=== PATIENT | male | born 2000 | race Caucasian/White ===

== ENCOUNTER 2023-12-22 13:39 | Emergency (ER) | payer SELFPAY ==
[~2023-12-22] VITALS: Ht 182.8 cm; Wt 88.9 kg
[2023-12-22] MEDS ORDERED: SODIUM CHLORIDE 0.9% 1,000 ML IV ONE (13:55)
[2023-12-22 14:19] LABS: BASO % 0.5 % (0.0-1.0); EOS # 0.1 10*3/uL (0.0-0.4); EOS % 1.1 % (1.0-4.0); HEMATOCRIT 43.8 % (42.0-52.0); LYMPH # 1.1 10*3/uL (1.3-4.4); LYMPH % 18.1 % (27.0-41.0); MEAN CELL VOLUME 88.7 fl (80.0-94.0); MEAN CORPUSCULAR HGB 29.8 pg (27.0-31.0); MEAN CORPUSCULAR HGB CONC 33.6 g/dl (33.0-37.0); MEAN PLATELET VOLUME 9.9 fl (9.6-12.3); MONO # 0.4 10*3/uL (0.1-1.0); MONO % 5.9 % (3.0-9.0); NEUT # 4.6 10*3/uL (2.3-7.9); NEUT % 74.2 % (47.0-73.0); PLATELET COUNT AUTOMATED 243 10*3/uL (130-400); RED BLOOD COUNT 4.94 10*6/uL (4.50-5.90); RED CELL DISTRI WIDTH 12.4 % (0-14.5); WHITE BLOOD COUNT 6.1 10*3/uL (4.8-10.8)
[2023-12-22 14:38] LABS: ALKALINE PHOSPHATASE 102 U/L (46-116); BUN 14 mg/dl (9-23); CHLORIDE 104 mmol/L (98-107); LIPASE 30 U/L (12-53); SGPT/ALT 26 U/L (5-49); TOTAL PROTEIN 7.6 gm/dL (6.0-8.0)
[2023-12-22] MEDS ORDERED: IOHEXOL 300 MG/ML 100 ML VIAL IV ONE (14:45)
[2023-12-22 15:54] LABS: BILIRUBIN Negative (Negative); BLOOD Negative (Negative); CLARITY Clear (Clear); COLOR Yellow (Yellow); GLUCOSE Negative (Negative); KETONE Negative (Negative); LEUKO ESTERASE Negative (Negative); NITRITE Negative (Negative); SPECIFIC GRAVITY >= 1.030 (1.001-1.030)
[2023-12-22 16:42] LABS: RBC 0-2 rbc/hpf (0-2)
[2023-12-22] MEDS ORDERED: CIPRO500 MG PO (16:51)
[2023-12-22] MEDS ORDERED: METRONIDAZOLE500 M1 PO (16:51)
== END 2023-12-22 17:10 | disposition home or self-care (01) ==
LOC: ED 13:39
PROVIDERS: Physician Assistant Medical
DX: K52.9 Noninfective gastroenteritis and colitis, unspecified (principal); R11.2 Nausea with vomiting, unspecified; Z88.1 Allergy status to other antibiotic agents; Z88.8 Allergy status to other drugs, medicaments and biological substances

== ENCOUNTER 2024-02-02 21:02 | Emergency (ER) | payer SELFPAY ==
[~2024-02-02] VITALS: Ht 180.3 cm; Wt 81.6 kg
[~2024-02-02 21:02] MED LIST: CIPRO500 MG PO; METRONIDAZOLE500 M1 PO
[2024-02-02] MEDS ORDERED: CYCLOBENZAPRINE5 M3 PO (21:20)
[2024-02-02] MEDS ORDERED: methylPREDNISolone sod succ 125 MG VIAL IM ONE (21:25)
[2024-02-02] MEDS ORDERED: Ketorolac Tromethamine 30 MG/ML VIAL IM ONE (21:25)
== END 2024-02-02 21:35 | disposition home or self-care (01) ==
LOC: ED 21:02
DX: S39.012A Strain of muscle, fascia and tendon of lower back, initial encounter (principal); M25.551 Pain in right hip; Z88.1 Allergy status to other antibiotic agents; Z88.8 Allergy status to other drugs, medicaments and biological substances; W01.0XXA Fall on same level from slipping, tripping and stumbling without subsequent striking against object, initial encounter; Y93.01 Activity, walking, marching and hiking; Y92.096 Garden or yard of other non-institutional residence as the place of occurrence of the external cause; Y99.8 Other external cause status

== ENCOUNTER 2024-03-22 23:14 | Emergency (ER) | payer SELFPAY ==
[~2024-03-22] VITALS: Ht 180.3 cm; Wt 86.2 kg
[~2024-03-22 23:14] MED LIST changes: +CYCLOBENZAPRINE5 M3 PO
[2024-03-23 00:06] LABS: BASO # 0.1 10*3/uL (0.0-0.1); BASO % 0.6 % (0.0-1.0); EOS # 0.1 10*3/uL (0.0-0.4); EOS % 1.1 % (1.0-4.0); HEMATOCRIT 40.1 % (42.0-52.0); MEAN CELL VOLUME 88.7 fl (80.0-94.0); MEAN CORPUSCULAR HGB 29.9 pg (27.0-31.0); MEAN CORPUSCULAR HGB CONC 33.7 g/dl (33.0-37.0); MEAN PLATELET VOLUME 9.9 fl (9.6-12.3); MONO # 0.7 10*3/uL (0.1-1.0); MONO % 7.8 % (3.0-9.0); NEUT # 5.7 10*3/uL (2.3-7.9); NEUT % 66.7 % (47.0-73.0); PLATELET COUNT AUTOMATED 220 10*3/uL (130-400); RED BLOOD COUNT 4.52 10*6/uL (4.50-5.90); RED CELL DISTRI WIDTH 12.3 % (0-14.5); WHITE BLOOD COUNT 8.6 10*3/uL (4.8-10.8)
[2024-03-23 00:13] LABS: BILIRUBIN Negative (Negative); BLOOD Negative (Negative); CLARITY Clear (Clear); COLOR Yellow (Yellow); GLUCOSE Negative (Negative); KETONE Negative (Negative); LEUKO ESTERASE Negative (Negative); NITRITE Negative (Negative); PH 6.5 (4.5-8.0); SPECIFIC GRAVITY 1.015 (1.001-1.030); UROBILINOGEN 0.2 E.U./dl (0.0-1.0)
[2024-03-23 00:24] LABS: RBC 0-2 rbc/hpf (0-2); WBC 0-2 wbc/hpf (0-5)
[2024-03-23 00:24] LABS: BUN 14 mg/dl (9-23); CHLORIDE 105 mmol/L (98-107); POTASSIUM 3.4 mmol/L (3.4-5.1)
[2024-03-23] MEDS ORDERED: AZITHROMYCIN 250 MG TAB PO ONE (00:50)
[2024-03-23] MEDS ORDERED: Water, Sterile 10 ML VIAL ONE (01:16)
== END 2024-03-23 01:12 | disposition home or self-care (01) ==
LOC: ED 23:14
PROVIDERS: Internal Medicine
DX: R10.30 Lower abdominal pain, unspecified (principal); R39.15 Urgency of urination; Z88.1 Allergy status to other antibiotic agents; Z88.8 Allergy status to other drugs, medicaments and biological substances

== ENCOUNTER 2024-03-29 20:43 | Emergency (ER) | payer SELFPAY ==
[~2024-03-29] VITALS: Ht 180.3 cm; Wt 86.2 kg
[2024-03-29] MEDS ORDERED: Dexamethasone Sodium Phospha 20 MG/5 ML VIAL IM ONE (22:50)
[2024-03-29] MEDS ORDERED: Ketorolac Tromethamine 30 MG/ML VIAL IM ONE (22:50)
== END 2024-03-30 01:25 | disposition left against medical advice (07) ==
LOC: ED 20:43
DX: M54.50 Low back pain, unspecified (principal); Z88.1 Allergy status to other antibiotic agents; Z79.899 Other long term (current) drug therapy; Z79.2 Long term (current) use of antibiotics; Z53.29 Procedure and treatment not carried out because of patient's decision for other reasons

== ENCOUNTER 2024-05-16 10:37 | Emergency (ER) | payer SELFPAY | END 2024-05-16 12:40 | disposition left against medical advice (07) | LOC: ED 10:37 | DX: R11.2 Nausea with vomiting, unspecified (principal); Z88.1 Allergy status to other antibiotic agents; Z88.8 Allergy status to other drugs, medicaments and biological substances; Z53.21 Procedure and treatment not carried out due to patient leaving prior to being seen by health care provider ==

== ENCOUNTER 2025-03-30 11:54 | Emergency (ER) | payer SELFPAY ==
[~2025-03-30] VITALS: Ht 180.3 cm; Wt 117.9 kg
[2025-03-30] MEDS ORDERED: METHOCARBAMOL 500 MG TAB PO ONE (12:15)
[2025-03-30] MEDS ORDERED: Dexamethasone Sodium Phospha 20 MG/5 ML VIAL IM ONE (12:15)
[2025-03-30] MEDS ORDERED: METHOCARBAMOL500 M1 PO (13:17)
[2025-03-30] MEDS ORDERED: PREDNISONE20 M1 PO (13:17)
== END 2025-03-30 13:25 | disposition home or self-care (01) ==
LOC: ED 11:54
DX: M54.16 Radiculopathy, lumbar region (principal); Z88.1 Allergy status to other antibiotic agents; Z88.8 Allergy status to other drugs, medicaments and biological substances